=== PATIENT | female | born 1975 | race Caucasian/White ===

== ENCOUNTER → 2022-02-18 07:38 | Outpatient (CLI) | payer OTHER, SELFPAY ==
--- NOTE | 2022-02-18 07:46 | DI.ECHO.S_ITS ---
[facility]---------+ [facility] +---------+ : : [address] : [address] : : : : [phone] : : : : Phone: [phone]---------+ Echocardiogram Report + + :Name: JAG NIEVES Study Date: 02/18/2022 Height: 68 in : :[facility] ReadingLocation: Weight: 100 lb : : Gender: Female BSA: 1.5 m2 : :: 1975 Age: 47 yrs BP: 100/72 mmHg: :Reason For Study: ISCHEMIC HEART DISASE, PALPITATIONS : :Ordering Physician: DONY, : :EVERARDO Performed By: Shelby Colunga : :Referring: [place] : + + Interpretation Summary The ejection fraction is estimated to be 50-55%. Distal lateral and inferolateral hypokinesis. Diastolic parameters suggest probable normal left ventricular diastolic function and normal filling pressures. The right ventricle is normal in size and function. There is mild aortic regurgitation. The right ventricular systolic pressure is estimated to be at least 14 mmHg based on an estimated right atrial pressure of 3 mm Hg. Procedure: A two-dimensional transthoracic echocardiogram with color flow and Doppler was performed. The study quality was technically adequate. There is no prior echocardiogram noted for this patient. The patient was in sinus rhythm with heart rates between 66-71 bpm during the exam. Left Ventricle: The left ventricle is normal in size and wall thickness. The ejection fraction is estimated to be 50-55%. Distal lateral and inferolateral hypokinesis. Diastolic parameters suggest probable normal left ventricular diastolic function and normal filling pressures. Right Ventricle: The right ventricle is normal in size and function. Atria: The left atrium grossly appears normal in size. Right atrial size is normal. There is no Doppler evidence for an interatrial shunt. Mitral Valve: The mitral valve is normal in structure and function. There is no mitral regurgitation noted. Aortic Valve: The aortic valve opens well. There is no aortic valve stenosis. There is mild aortic regurgitation. Tricuspid Valve: The tricuspid valve is normal in structure and function. There is trace tricuspid regurgitation. The right ventricular systolic pressure is estimated to be at least 14 mmHg based on an estimated right atrial pressure of 3 mm Hg. Pulmonic Valve: The pulmonic valve is not well seen, but is grossly normal. There is no pulmonic valvular regurgitation. Great Vessels: The aortic root is normal size. The ascending aorta could not be visualized. The IVC is of normal diameter and collapses greater than 50% with a sniff. This suggests a low right atrial pressure of 3 mm Hg. Pericardium/ Pleura There is no pericardial effusion. There is no pleural effusion. MMode/2D Measurements & Calculations LVIDd: 5.0 cm LVOT diam: 2.1 cm LVIDs: 3.4 cm Ao root diam: 2.8 cm FS: 32.9 % Ao Arch Diam (Prox Trans): 2.8 cm EPSS: 0.67 cm IVSd: 0.64 cm LVPWd: 0.58 cm LV barbosa. diameter/BSA (cm/m^2): 3.3 LV sys. diameter/BSA (cm/m^2): 2.2 LA A4 area: 8.0 cm2 RA long axis: 3.3 cm LA length (vol): 3.3 cm RA area: 9.0 cm2 RA vol: 20.7 ml RA : 13.6 ml/m2 IVC diam: 1.4 cm RVD1 (basal): 2.6 cm RVD2 (mid): 2.2 cm TAPSE: 1.9 cm Doppler Measurements & Calculations Ao V2 max: 87.7 cm/sec LVOT Max Jorge Luis: 80.6 cm/sec Ao V2 mean: 61.9 cm/sec LV V1 max P.6 mmHg Ao max P.1 mmHg LV V1 VTI: 16.4 cm Ao mean P.7 mmHg SHELLEY(I,D): 3.1 cm2 Ao V2 VTI: 18.6 cm SHLELEY(V,D): 3.2 cm2 sev ratio: 0.88 SHELLEY indexed to BSA (cm^2/m^2): 2.0 MV E max jorge luis: 54.0 cm/sec TR max jorge luis: 163.4 cm/sec MV A max jorge luis: 46.9 cm/sec TR max P.7 mmHg MV E/A: 1.2 PA V2 max: 67.6 cm/sec Med Peak E' Jorge Luis: 5.6 cm/sec PA V2 mean: 48.0 cm/sec E/E' med: 9.7 PA mean P.0 mmHg Lat Peak E' Jorge Luis: 10.9 cm/sec PA pr(Accel): 31.0 mmHg E/E' lat: 4.9 E/e' average: 7.3 MV dec time: 0.16 sec SVLVOT): 57.8 ml Reading Physician:10:11 AM
[2022-02-18 13:54] LABS: Add Manual Diff / Slide Review NO; Basophils Absolute Auto 0 /uL (0-100); Basophils Percent Auto 0.7 % (0-2); Eosinophils Absolute Auto 200 /uL (0-450); Eosinophils Percent Auto 4.2 % (2-4); Hematocrit 39.3 % (36-46); Hemoglobin 13.5 g/dL (12.0-16.0); Lymphocytes Absolute Auto 1700 /uL (1100-4500); Lymphocytes Percent Auto 33.9 % (25-40); Mean Corpuscular HGB Conc 34.4 % (30-36); Mean Corpuscular Hemoglobin 32.5 PG (26-34); Mean Corpuscular Volume 94.3 fL (80-100); Monocytes Absolute Auto 400 /uL (0-900); Monocytes Percent Auto 8.1 % (3-14); Neutrophils Absolute Auto 2600 /uL (1500-7000); Neutrophils Percent Auto 53.1 % (50-75); Platelet Count 219 X10^3/uL (150-400); Red Blood Cell Count 4.16 X10^6/uL (4.0-5.2); White Blood Cell Count 4.9 X10^3/uL (4.5-11.0)
[2022-02-19 17:54] LABS: Free T3, Triiodothyronine Free 2.59 pg/mL (2.77-5.27); Free T4, Direct Thyroxine 1.29 ng/dL (0.78-2.19)
[2022-02-19 18:07] LABS: Thyroid Stimulating Hormone 3.69 uIU/mL (0.47-4.68)
== END ==
PROVIDERS: Referring Provider Chiropractor; Visit Provider Chiropractor
DX: I35.1 Nonrheumatic aortic (valve) insufficiency (principal); I25.9 Chronic ischemic heart disease, unspecified; E05.90 Thyrotoxicosis, unspecified without thyrotoxic crisis or storm; R00.2 Palpitations
CPT/HCPCS: 36415; 84439; 84443; 84481; 85025; 93005; 93010; 93306